=== PATIENT | male | born 1985 | race Caucasian/White ===

== ENCOUNTER 2019-02-13 14:34 | Observation (INO) | payer BC ==
[2019-02-13] MEDS ORDERED: ONDANSETRON 4 MG/2 ML VIAL IV PRN (16:00)
[2019-02-13] MEDS ORDERED: DIPHENHYDRAMINE 25 MG TAB/CAP PO PRN (16:00)
[2019-02-13] MEDS ORDERED: LOPERAMIDE HCL 2 MG CAPSULE PO PRN (16:00)
[2019-02-13] MEDS ORDERED: PNEUMOCOCCAL VACCINE 0.5 ML IMVAC ONE (16:00)
[2019-02-13] MEDS ORDERED: ACETAMINOPHEN 325 MG TABLET PO PRN (16:00)
[2019-02-13] MEDS ORDERED: ONDANSETRON 4 MG (ODT) TAB PO PRN (16:00)
[2019-02-13] MEDS ORDERED: NACHLORIDE 0.45% 1,000 ML IV SCH (16:00)
[2019-02-13] MEDS ORDERED: POLYETHYL GLY 3350 17 GM/DOSE PO PRN (16:00)
[2019-02-13] MEDS: ENOXAPARIN 40 MG/0.4 ML SQ SCH (16:00)
[2019-02-13] MEDS ORDERED: INFLUENZA VACCINE (for 3y+) 0.5 ML DOSE IMVAC ONE (16:00)
[2019-02-13 16:19] LABS: Absolute Lymphocytes (CBC) 1.3 K/uL (0.7-4.9); Basophils % 0.4 % (0-1.3); Hematocrit 39.5 % (39.6-49.0); Lymphocytes % 19.4 % (15.3-44.8); MPV 7.9 fL (7.6-11.3); RBC Red Blood Cell Count 4.23 M/uL (4.33-5.43)
[2019-02-13 16:21] LABS: Protime INR 1.11
[2019-02-13 16:59] LABS: Urine Appearance CLEAR; Urine Bilirubin NEGATIVE (NEG); Urine Blood NEGATIVE (NEG); Urine Color YELLOW; Urine Glucose NEGATIVE (NEG); Urine Protein NEGATIVE (NEG); Urine Urobilinogen 0.2 mg/dL (0.2-1.0); Urine pH 6.5 (5.0-7.0)
[2019-02-13 17:01] LABS: Urine Microscopic Reflex NO UMIC
[2019-02-13 17:12] LABS: Albumin 4.2 g/dL (3.4-5.0); Bilirubin Direct 0.1 mg/dL (0-0.2); Bilirubin Total 0.5 mg/dL (0.2-1.0); Magnesium 2.1 mg/dL (1.8-2.4); Phosphorus 3.6 mg/dL (2.5-4.9); Thyroid Stimulating Hormone 1.68 uIU/mL (0.360-3.740)
[2019-02-13 17:17] VITALS: BMI 23.0
[2019-02-13] MEDS: CEFTRIAXONE/SWI 1gm 1 GM/10 ML SYR IVP SCH ×2 (18:21→20:59)
[2019-02-13] MEDS: METRONIDAZOLE 500mg IVPB 500 MG/100 ML BAG IV SCH ×2 (18:26→23:33)
[2019-02-13] MEDS: HYDROMORPHONE HCL 1 MG/ML INJ IV PRN (21:42)
[2019-02-14] MEDS: HYDROMORPHONE HCL 1 MG/ML INJ IV PRN ×7 (03:57→23:54)
[2019-02-14 04:26] LABS: Absolute Lymphocytes (CBC) 1.6 K/uL (0.7-4.9); Basophils % 0.6 % (0-1.3); Hematocrit 38.7 % (39.6-49.0); Lymphocytes % 25.1 % (15.3-44.8); MPV 7.5 fL (7.6-11.3); RBC Red Blood Cell Count 4.16 M/uL (4.33-5.43)
[2019-02-14 04:38] LABS: Magnesium 1.9 mg/dL (1.8-2.4); Potassium 4.5 mmol/L (3.5-5.1)
[2019-02-14] MEDS: METRONIDAZOLE 500mg IVPB 500 MG/100 ML BAG IV SCH ×4 (06:54→23:53)
[2019-02-14] MEDS: ENOXAPARIN 40 MG/0.4 ML SQ SCH (08:25)
[2019-02-14] MEDS: CEFTRIAXONE/SWI 1gm 1 GM/10 ML SYR IVP SCH ×2 (08:25→21:31)
--- NOTE | 2019-02-14 10:52 | RAD REPORT ---
EXAM DESRIPTION: CT ABDOMEN & PELVIS W/CONTRAST CLINICAL HISTORY: Umbilical pain, drainage from the umbilicus COMPARISON: None. TECHNIQUE: Biphasic 5 mm images of the abdomen and pelvis were obtained during dynamic enhancement using 100 ml non-ionic contrast. Oral contrast was administered, This exam was performed according to our departmental dose-optimization program, which includes automated exposure control, adjustment of the mA and/or kV according to patient size and/or use of iterative reconstruction technique. FINDINGS: The lung bases are clear. The liver, spleen, pancreas, gallbladder, biliary tree, adrenal glands and kidneys show no suspicious findings. No adrenal abnormality. The midline peritoneal cavity immediately deep to the abdominal wall at the umbilical level there is a 2.7 cm oval mass. This is centrally lucent with thickened irregular rim. This is most likely an abscess and the source for umbilical drainage. Stranding in the subcutaneous fatty tissues. The peritoneal fat surrounding this presumed abscess shows no congestion or edema. Adjacent bowel loops are uninvolved. No thickening or edema of the rectus abdominus muscles. No bowel abnormality identified. No free air, free fluid or inflammatory stranding. No mass or bulky lymphadenopathy. Partially filled urinary bladder is unremarkable. No acute bone abnormality is seen. 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 IMPRESSION: 1. An approximately 2.7 cm sized abscess in the peritoneal cavity immediately deep to the abdominal wall at the umbilical level. 2. The peritoneal fat surrounding the abscess has a normal appearance and adjacent bowel loops are uninvolved.
[2019-02-14] MEDS ORDERED: Ringers Lactate 1,000 ML IV ONE (10:55)
--- NOTE | 2019-02-14 11:07 | RAD REPORT ---
EXAM DESCRIPTION: CHEST - PA & LAT TWO-VIEW CLINICAL HISTORY: Abdominal pain. COMPARISON: None. TECHNIQUE: Chest two - view FINDINGS: The lungs are clear. The heart and vasculature are within normal limits. Trachea is midline. No pneumothorax or pleural effusion. No free air under the diaphragm. No acute bone finding. IMPRESSION: Negative two-view chest examination.
[2019-02-14] MEDS ORDERED: PROPOFOL 200 MG/20 ML VIAL IV ONE (11:12)
[2019-02-14] MEDS ORDERED: ONDANSETRON 4 MG/2 ML VIAL ONE (11:12)
[2019-02-14] MEDS ORDERED: FENTANYL CITR 100 MCG/2 ML ONE (11:12)
[2019-02-14] MEDS ORDERED: LIDOCAINE 2% MPF 5 ML VIAL ONE (11:12)
[2019-02-14] MEDS ORDERED: ROCURONIUM 50 MG/5 ML VIAL IV ONE (11:12)
[2019-02-14] MEDS ORDERED: MIDAZOLAM HCL 2 MG/2 ML INJ ONE (11:12)
[2019-02-14] MEDS ORDERED: CEFOXITIN/SWI 1gm 1 GM/10 ML SYR ONE (11:24)
[2019-02-14] MEDS ORDERED: GLYCOPYRROLATE 0.2 MG/ML SYR ONE (12:24)
[2019-02-14] MEDS ORDERED: NEOSTIGMINE 1 MG/ML -10 ML VIAL ONE (12:24)
--- NOTE | 2019-02-14 12:30 | P.OP ---
Builder Operator: Martinez RUIZ Preoperative diagnosis: Abscess Abdomen Postoperative diagnosis: same with Infected Sebecous Cyst Primary procedure: Diag Lap, Wide excision Infected Sebecous Cyst Abdomen Anesthesia: General Estimated blood loss: min Specimen: pus and cyst Findings: as above Complications: None Transferred to: Recovery Room Condition: Good
[2019-02-14] MEDS: MEPERIDINE HCL 25 MG/0.5 ML ONE ×2 (12:39→13:12)
[2019-02-14] MEDS: HYDROMORPHONE HCL 2 MG/ML inj ONE ×4 (12:47→13:06)
[2019-02-14] MEDS ORDERED: NACHLORIDE 0.45% 1,000 ML IV ONE (13:03)
[2019-02-14] MEDS ORDERED: METRONIDAZOLE 500mg IVPB 500 MG/100 ML BAG IV ONE (13:03)
[2019-02-14] MEDS ORDERED: HYDROMORPHONE HCL 1 MG/ML INJ ONE (13:25)
--- NOTE | 2019-02-14 19:07 | EKG ---
Test Date: 2019-02-13 Test Time: 15:45:14 Tool Maker Bench: DORIS MEASUREMENT RESULTS: Intervals: Rate: 54 WI: 160 QRSD: 92 QT: 404 QTc: 383 [place]: P: 47 WI: 160 QRS: 60 T: 35 INTERPRETIVE STATEMENTS: Sinus bradycardia Otherwise normal ECG Compared to ECG 01/10/2019 13:34:46 Sinus rhythm no longer present Right-axis deviation no longer present Electronically Signed On 02-14-19 07:40:51 CDT by Je Bermudez
--- NOTE | 2019-02-14 20:53 | P.PN ---
Subjective Date of Service: 02/14/19 Chief Complaint: SP ABSCESS BENEATH THE UMBILLICUS. Subjective: Improving HE IS STILL IN PAIN FROM SURGERY AND THAT IS SEVERE HE IS ASKING FOR IV MED. S Review of Systems 10-point ROS is otherwise unremarkable Gastrointestinal: Abdominal Pain Physical Examination - Vital Signs Temperature: 99 F Blood Pressure: 111/52 Pulse: 64 Respirations: 16 Pulse Ox (%): 93 - Physical Exam General: Moderate distress HEENT: Atraumatic, PERRLA, EOMI Neck: Supple, JVD not distended Respiratory: Clear to auscultation bilaterally, Normal air movement Cardiovascular: Regular rate/rhythm, Normal S1 S2 Gastrointestinal: Normal bowel sounds, No tenderness Musculoskeletal: No tenderness Integumentary: No rashes Neurological: Normal speech, Normal tone, Normal affect Lymphatics: No axilla or inguinal lymphadenopathy - Studies Laboratory Data (last 24 hrs) 02/14/19 04:10: Sodium 141, Potassium 4.5, BUN 10, Creatinine 1.26, Glucose 84, Magnesium 1.9 02/14/19 04:10: WBC 6.5, Hgb 13.5 L, Hct 38.7 L, Plt Count 178 Medications List Reviewed: Yes Assessment And Plan - Plan I AM NOT ABLE TO PULL DOWN PROBEM LIST WITH COMPUTER GLITCH FOR LAST TWO DAYS AT . POST OP DAY 0 SURGERY FOR MODERATE SIZE TIGHT ABSCESS BENEATH UMBILLICUS. IV ABX. IV PAIN MEDS. NOT PAINFREE ENOUGH TO GO HOME TODAY.
[2019-02-15] MEDS: HYDROMORPHONE HCL 1 MG/ML INJ IV PRN (04:32)
[2019-02-15] MEDS: METRONIDAZOLE 500mg IVPB 500 MG/100 ML BAG IV SCH ×2 (05:43→11:52)
[2019-02-15 06:52] LABS: Absolute Lymphocytes (CBC) 0.7 K/uL (0.7-4.9); Basophils % 0.2 % (0-1.3); Hematocrit 42.9 % (39.6-49.0); Lymphocytes % 6.9 % (15.3-44.8); MPV 7.6 fL (7.6-11.3)
[2019-02-15 06:54] LABS: Magnesium 1.7 mg/dL (1.8-2.4); Potassium 3.9 mmol/L (3.5-5.1)
[2019-02-15] MEDS: ENOXAPARIN 40 MG/0.4 ML SQ SCH (08:26)
[2019-02-15] MEDS: CEFTRIAXONE/SWI 1gm 1 GM/10 ML SYR IVP SCH (08:26)
[2019-02-15 11:52] VITALS: O2SAT 99
[2019-02-15 12:17] VITALS: BP 124/72; TEMP 98.3
--- NOTE | 2019-02-15 13:08 | P.DS ---
Admission Date: 02/13/19 Discharge Date: 02/15/19 Disposition: ROUTINE DISCHARGE Discharge Condition: GOOD Reason for Admission: SP ABSCESS BENEATH THE UMBILLICUS. Hospital Course: MR HERNANDEZ IS DOING BETTER. HE COULD NOT GO HOME YESTERDAY HE WAS IN A LOT OF PAIN. HE IS STABLE. HE HAS ANTIBIOTICS AT HOME. HE IS GIVEN PAIN PILLS. Vital Signs/Physical Exam: Temp Pulse Resp BP Pulse Ox 98.3 F 77 17 124/72 99 02/15/19 12:00 02/15/19 12:00 02/15/19 12:00 02/15/19 12:00 02/15/19 12:00 Laboratory Data at Discharge: WBC 10.1 K/uL (4.3-10.9) D 02/15/19 06:18 Hgb 15.5 g/dL (13.6-17.9) 02/15/19 06:18 Hct 42.9 % (39.6-49.0) 02/15/19 06:18 Plt Count 189 K/uL (152-406) 02/15/19 06:18 PT 13.0 SECONDS (9.5-12.5) H 02/13/19 15:42 INR 1.11 02/13/19 15:42 APTT 33.0 SECONDS (24.3-36.9) 02/13/19 15:42 Sodium 134 mmol/L (136-145) L 02/15/19 06:18 Potassium 3.9 mmol/L (3.5-5.1) 02/15/19 06:18 BUN 10 mg/dL (7-18) 02/15/19 06:18 Creatinine 1.21 mg/dL (0.55-1.3) 02/15/19 06:18 Glucose 107 mg/dL (74-106) H 02/15/19 06:18 Phosphorus 3.6 mg/dL (2.5-4.9) 02/13/19 15:42 Magnesium 1.7 mg/dL (1.8-2.4) L 02/15/19 06:18 Total Bilirubin 0.5 mg/dL (0.2-1.0) 02/13/19 15:42 AST 18 U/L (15-37) 02/13/19 15:42 ALT 17 U/L (12-78) 02/13/19 15:42 Alkaline Phosphatase 75 U/L (45-117) 02/13/19 15:42 Home Medications: Ciprofloxacin HCl [Cipro 500 MG Tablet] 500 mg PO Q12H 15 Days #30 tab 02/15/19 Codeine/APAP [Tylenol W/Codeine #3 tab] 1 tab PO Q4HP PRN #40 tab 02/15/19 New Medications: Ciprofloxacin HCl [Cipro 500 MG Tablet] 500 mg PO Q12H 15 Days #30 tab Codeine/APAP [Tylenol W/Codeine #3 tab] 1 tab PO Q4HP PRN #40 tab PRN Reason: Pain Patient Discharge Instructions: Remove dressing on Sunday and shower. keep wound clean and dry. Dry gauze daily Diet: Regular Activity: No lifting more than 10 lbs Followup: Dejan Workman MD [Primary Care Provider] - 1-2 Weeks Theron Oquendo MD [ACTIVE - CAN ADMIT] - 1-2 Weeks (call office to schedule appointment)
--- NOTE | 2019-02-17 14:09 | CON ---
Date of Consultation: 02/14/2019 Reason For Consultation: Abdominal abscess. History Of Present Illness: The patient is a 33-year-old gentleman, presented to Dr. Workman's office with abdominal pain for a week with drainage from the umbilicus. CAT scan was done. An abscess was identified. He was admitted, IV antibiotics were started, and I was consulted. He denies any nausea or vomiting. Does complain of some serous drainage. No fever or chills. No redness. Pain is pres ent. Review of Systems: Otherwise unremarkable. No sore throat, runny nose, cough, headaches, or dizziness. No chest pain. Past Medical History: Negative. Past Surgical History: Negative for any surgery on the abdomen. Allergies: NO ALLERGIES. Social History: He does not smoke. Drinks occasionally. Family History: Noncontributory. Physical Examination: Vital Signs: Stable. Afebrile. General: Awake, alert, and oriented x3. Head and Neck: Cranial nerves 2 through 12 grossly within normal limits. No neck masses. No JVD. Throat clear. Neck is supple. Chest: Clear. Heart: S1, S2. Abdomen: Soft, nondistended. Minimal serous drainage from the umbilicus, tender below it. No redne ss. No peritonitis. Extremities: Adequately perfused. Nontender. Neuro: Nonfocal. Laboratory Data: His white count was normal. CT of the abdomen and pelvis was reviewed with Dr. Joel pope, essentially showed an abscess in the peritoneal cavity below the fascia approximately 2.[address] beneath the umbilicus. Assessment: Abdominal abscess. Plan: After reviewing the CAT scan with Dr. Schmidt, we will do a diagnostic laparoscopy and incisio n drainage and debridement of abdominal abscess. Patient understands the risks, benefits, and altern atives and agrees to procedure. /MODL Voice ID: [id number] Report ID: [id number]
--- NOTE | 2019-02-17 21:23 | OP ---
Date of Procedure: 02/14/2019 Surgeon: Theron Oquendo MD Preopeartive Diagnosis: Abdominal wall abscess. Postopeartive Diagnosis: Abdominal wall abscess with infected sebaceous cyst in the posterior sheath . Procedure Performed: Diagnostic laparoscopy, wide excision of infected mass in the abdomen. Estimated Blood Loss: Minimal. Specimen: Abdominal cyst. Findings: As above. Anesthesia: General. Complications: None. Disposition: Patient tolerated the procedure in stable condition, taken to Recovery in good general condition. Procedure In Detail: The patient was brought to the OR and placed in supine position. General anest hesia was begun. Patient was prepped and draped in the usual sterile fashion. Marcaine 0.5% was inf iltrated locally. A 15-blade was used to make a 1 cm left upper quadrant to the subcutaneous tissue divided. The fascia was identified and divided. A #1 Vicryl stay suture was placed. Peritoneal cav ity was entered with sharp and blunt dissection. 12 mm trocar placed in the peritoneal cavity and 5 mm trocar was placed in the left lower quadrant. Laparoscopy revealed some omentum adhesed to the um bilicus. This was taken down with LigaSure, but there was no mass seen intraperitoneally, it was mos tly in the posterior sheath region and was easy to palpate. Once the patient was under anesthesia, a 4 cm infraumbilical midline incision was made and subcu tissue was divided. Fascia was identified a nd divided and deep to the fascia in the peritoneal cavity, there was a mass that was consistent with sebaceous cyst. It had some hair in it and it was widely excised down to the umbilicus. Part of th e umbilicus was excised and scarring was removed. There was sebum inside the cyst, cultures were don e. Fascia was closed with running #1 PDS. Wound irrigated, bleeding controlled with cautery. A 3-0 chromic was used to approximate the subcutaneous tissue and lidia used to close skin. The stay ramírez tures tied at the left upper quadrant to reapproximate the fascial defect. Subcu wounds irrigated. Bleeding controlled with cautery. A 3-0 chromic used for subcutaneous tissue and lidia were used t o close the skin. Sterile dressing was applied. Patient was awakened and taken to Recovery in good general condition. Discharge Note: Patient will go to the Day Surgery, then home when stable. Disposition: Home. Condition: Stable. Discharge Instructions: Resume home medications and diet. Activity as tolerated. No heavy lifting. Remove outer dressing in 2 days. Shower. Keep wound clean and dry. Follow up in my office in 1 t o 2 weeks. Tylenol No. 3 one tablet p.o. q.4 p.r.n. pain. Had abdominal binder as ordered. ZAIDA/JOSE MARTIN Voice ID: [id number] Report ID: [id number]
== END 2019-02-15 13:35 | disposition home or self-care (01) ==
LOC: 4TH 14:34
PROVIDERS: ADMIT Internal Medicine; ATTEND Internal Medicine
PROC: 0JB80ZZ Excision of Abdomen Subcutaneous Tissue and Fascia, Open Approach (ICD-10-PCS; principal; 2019-02-14 11:15)
DX: K65.1 Peritoneal abscess (principal); L72.3 Sebaceous cyst
CPT/HCPCS: 93005; 87070; 85025 ×3; 87086; 80048 ×3; 36415 ×3; 83735 ×3; 87205; 84100; 85610; 80076; 88304; 85730; 87075; 84443; 81003; 82607; 82306; 74177; 71046; 22903; Q9967; J2704; J2710; J2250; J1170 ×11; J3010; J2175; J0696 ×5; G0378 ×5; J7120; J2405; 87088; J1650